=== PATIENT | female | born 1985 | race African-American/Black ===

== ENCOUNTER → 2019-01-07 | Outpatient (CLI) | payer OTHER ==
[~2019-01-07] MED LIST: CONTRAST GIVEN. MC PRN; IOHEXOL 300 MG/ML 100ML VIAL. IV ONE
--- NOTE | 2019-01-07 14:18 | RAD ---
PQRS Compliance Statement: One or more of the following individualized dose reduction techniques were utilized for this examination: 1. Automated exposure control 2. Adjustment of the mA and/or kV according to patient size 3. Use of iterative reconstruction technique CT CHEST W/CONTRAST Clinical Indication: abnormal CXR, cough and back pain x 6 months. Comparison: Two-view chest, December 24, 2018. Technique: Helical CT imaging of the chest is performed after 75 cc Omnipaque 300 IV contrast. Findings: The thyroid is symmetric. The great vessels are normal caliber. No central pulmonary embolus. No thoracic aortic dissection. There is no adenopathy in the chest. Cardiac size normal, no pericardial effusion. There is no pleural abnormality. The central airways are patent. There is a 4 mm peripheral nodule in the superior segment of the right lower lobe, image 28. Finding is more than likely benign in a patient of this age. Lungs are otherwise clear. Visualized upper abdomen is unremarkable. No acute bone abnormality. IMPRESSION: No acute cardiopulmonary process. Electronically signed by: Jag Turcios MD (01/07/2019 2:15 PM) [id number]
== END | disposition home or self-care (01) ==
LOC: CT 11:28
PROVIDERS: ATTEND Family Medicine
DX: R91.1 Solitary pulmonary nodule (principal)
CPT/HCPCS: 71260; Q9967